=== PATIENT | female | born 1975 | race American Indian/Alaskan Native ===

== ENCOUNTER 2018-04-26 18:32 | Emergency (ER) | payer OTHER ==
--- NOTE | 2018-04-26 18:57 | Emergency Department Report ---
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 will order CT head, and CP protocol ED Disposition for MSE Condition: Stable
[2018-04-26 19:28] LABS: Basophils # (Auto) 0.1 K/mm3 (0.0-0.1); Basophils % (Auto) 0.7 % (0.0-1.8); Eosinophils # (Auto) 0.1 K/mm3 (0.0-0.4); Eosinophils % (Auto) 1.2 % (0.0-4.3); Hematocrit 37.7 % (30.3-42.9); Lymphocytes # (Auto) 1.7 K/mm3 (1.2-5.4); Lymphocytes % (Auto) 22.3 % (13.4-35.0); Mean Corpuscular HGB Conc 35 % (30-34); Mean Corpuscular Volume 89 fl (79-97); Monocytes # (Auto) 0.4 K/mm3 (0.0-0.8); Platelet Count 366 K/mm3 (140-440); Red Blood Count 4.25 M/mm3 (3.65-5.03); Red Cell Distribution Width 13.6 % (13.2-15.2)
[2018-04-26 19:33] LABS: Bacteria,Urine 1+ /HPF (Negative); Bilirubin,Urine NEG (Negative); Blood,Urine NEG (Negative); Color,Urine Yellow (Yellow); Mucus,Urine 1+ /HPF
[2018-04-26 19:39] LABS: INR 0.92 (0.87-1.13)
[2018-04-26 19:40] LABS: Partial Thromboplastin Time 23.2 Sec. (24.2-36.6)
[2018-04-26 19:49] LABS: Alanine Aminotransferase 20 units/L (7-56); BUN/Creatinine Ratio 14; Blood Urea Nitrogen 11 mg/dL (7-17); Calcium 9.1 mg/dL (8.4-10.2); Hemolysis Index 6
--- NOTE | 2018-04-26 20:10 | XRay Report ---
PROCEDURE: XR CHEST ROUTINE 2V TECHNIQUE: Chest 2 views HISTORY: Chest Pain COMPARISONS: FINDINGS: IMPRESSION: . This document is electronically signed by Darnell Raphael MD., April 26 2018 08:07:49 PM ET
--- NOTE | 2018-04-26 20:26 | Cat Scan Report ---
PROCEDURE: CT HEAD/BRAIN WO CON TECHNIQUE: Computerized tomography of the head was performed without contrast material. HISTORY: PEARCE, right eye blurriness COMPARISONS: None . FINDINGS: Brain: Brain density appears normal. No evidence of intracranial hemorrhage. No parenchymal hemorr venessa, mass lesions or mass effect are seen. No abnormal extra-axial fluid collects or masses are see n. Ventricles: Ventricles are normal size and are midline. Bone Windows: No evidence of skull fracture. Paranasal sinuses: Visualized portion of the left maxillary sinus is opacified. I'm uncertain if this represents mucosal thickening and fluid versus a large mucous retention cyst. Visualized paranasal s inuses otherwise are clear. Mastoid air cells: Clear. IMPRESSION: Negative unenhanced CT of the brain. Paranasal sinus disease as described. Please see above comments. This document is electronically signed by Eliud Kennedy MD., April 26 2018 08:24:19 PM ET
[2018-04-26] MEDS ORDERED: NACL 0.9% 1000 ML 1,000 ML IV ONE (20:50)
[2018-04-26] MEDS ORDERED: ZOFRAN IV ONE (20:50)
--- NOTE | 2018-04-26 21:30 | Emergency Department Report ---
HPI - General Chief Complaint: Chest Pain Time Seen by Provider: 04/26/18 18:49 - HPI HPI: 42-year-old after [place] female presents to the emergency department with 3 complaints. First, the patient has had a 5 day history of some right-sided head and facial pain along with some blurriness in the right eye. She has also had a 5 day history of some right mid to lower quadrant abdominal pain. Lastly the patient complains of some right-sided chest pain that started today. She denies any shortness of breath, vomiting, dysuria, vaginal bleeding or discharge but does have some nausea. She has not taken anything for her symptoms prior to presentation. She denies any past medical history. No recent travel or sick contacts at home. She does not have a primary care physician. She denies any tobacco or illicit drug use or abuse. ED Past Medical Hx - Past Medical History Previous Medical History?: No - Surgical History Additional Surgical History: hysterectomy - Social History Smoking Status: Never Smoker Substance Use Type: None - Medications Home Medications: Home Medications Medication Instructions Recorded Confirmed Last Taken Type Ibuprofen 600 mg PO Q8H PRN #20 tablet 04/26/18 Unknown Rx ED Review of Systems ROS: Stated complaint: RT SIDE PAIN/CHEST PAIN Other details as noted in HPI Comment: All other systems reviewed and negative Constitutional: denies: chills, fever Eyes: vision change (right eye blurry vision). denies: eye pain ENT: denies: ear pain, throat pain Respiratory: denies: cough, shortness of breath Cardiovascular: chest pain. denies: edema Gastrointestinal: abdominal pain, nausea. denies: vomiting Genitourinary: denies: dysuria, discharge Musculoskeletal: denies: back pain, arthralgia Skin: denies: rash, lesions Neurological: headache. denies: numbness Physical Exam - Physical Exam Vital Signs: Vital Signs 04/26/18 04/26/18 18:49 20:27 Temperature 97.9 F 98.3 F Pulse Rate 68 61 Respiratory 18 16 Rate Blood Pressure 122/77 Blood Pressure 127/76 [Left] O2 Sat by Pulse 100 97 Oximetry Physical Exam: GENERAL: The patient is well-developed well-nourished. HEENT: Normocephalic. Atraumatic. Patient has moist mucous membranes. EYES: Extraocular motions are intact. Pupils are equal and reactive to light bilaterally. Visual acuity: 20/20 for OS, OD and both eyes. NECK: Supple. Trachea is midline. CHEST/LUNGS: Clear to auscultation. There is no respiratory distress noted. HEART/CARDIOVASCULAR: Regular. There is no tachycardia. There is no obvious murmur. ABDOMEN: Abdomen is soft, nontender. Patient has normal bowel sounds. There is no abdominal distention. SKIN: Skin is warm and dry. NEURO: The patient is awake, alert, and oriented. The patient is cooperative. The patient has no focal neurologic deficits. The patient has normal speech. Cranial nerves II through XII grossly intact. No pronator drift. No dysmetria. No facial asymmetry. MUSCULOSKELETAL: There is no tenderness or deformity. There is no limitation range of motion. There is no evidence of acute injury. ED Course Vital Signs 04/26/18 04/26/18 18:49 20:27 Temperature 97.9 F 98.3 F Pulse Rate 68 61 Respiratory 18 16 Rate Blood Pressure 122/77 Blood Pressure 127/76 [Left] O2 Sat by Pulse 100 97 Oximetry ED Medical Decision Making - Lab Data Result diagrams: 04/26/18 19:13 04/26/18 19:13 - EKG Data -: EKG Interpreted by Me EKG shows normal: sinus rhythm, axis, intervals, QRS complexes, ST-T waves Rate: normal - EKG Data When compared to previous EKG there are: previous EKG unavailable Interpretation: normal EKG - Radiology Data Radiology results: report reviewed, image reviewed interpreted by me: Chest x-ray does not show any pneumothorax, pleural effusion, pneumonia or obvious focal consolidation. PROCEDURE: CT HEAD/BRAIN WO CON TECHNIQUE: Computerized tomography of the head was performed without contrast material. HISTORY: PEARCE, right eye blurriness COMPARISONS: None . FINDINGS: Brain: Brain density appears normal. No evidence of intracranial hemorrhage. No parenchymal hemorrhage, mass lesions or mass effect are seen. No abnormal extra-axial fluid collects or masses are seen. Ventricles: Ventricles are normal size and are midline. Bone Windows: No evidence of skull fracture. Paranasal sinuses: Visualized portion of the left maxillary sinus is opacified. I'm uncertain if this represents mucosal thickening and fluid versus a large mucous retention cyst. Visualized paranasal sinuses otherwise are clear. Mastoid air cells: Clear. IMPRESSION: Negative unenhanced CT of the brain. Paranasal sinus disease as described. Please see above comments. This document is electronically signed by Eliud Henry MD., April 26 2018 08:24:19 PM ET Transcribed By: DANIELLE Dictated By: ELIUD HENRY MD Electronically Authenticated By: ELIUD HENRY MD Signed Date/Time: 04/26/182025 PROCEDURE: CT ABDOMEN PELVIS W CON TECHNIQUE: Computerized axial tomography of the abdomen and pelvis was performed after the IV injection of iodinated nonionic contrast. HISTORY: RLQ abd pain COMPARISONS: None . FINDINGS: Lower Lung chen: Small amount of dependent atelectasis visualized. Lung bases otherwise are clear. Upper Abdomen: Gallbladder is contracted and difficult to evaluate. No gross abnormality is visualized. The liver showed no focal abnormality. The adrenal glands, the pancreas and spleen are unremarkable. Kidneys, Ureters and Urinary bladder: No abnormalities are seen. Retroperitoneum: Atherosclerotic changes are seen in the abdominal aorta. No aneurysm is visualized. Nonspecific subcentimeter lymph nodes are seen in the retroperitoneum. No pat hologically enlarged lymph nodes are identified. Bowel: No abnormalities are identified. There is no evidence of bowel obstruction. No ascites or free intraperitoneal gas is seen. Normal-appearing appendix is visualized in the right lower quadran t. Reproductive organs: Uterus appears to be surgically absent. No abnormal adnexal masses are seen. There is minimal nonspecific fluid visualized in the right side of the cul-de-sac. Other: No acute bone abnormalities are identified. IMPRESSION: Normal-appearing appendix visualized within the right lower quadrant. Minimal nonspecific fluid visualized in the caudal sac to the right of midline. No abnormal adnexal masses are seen. Uterus appears to be surgically absent. This document is electronically signed by Eliud Henry MD., April 26 2018 10:03:11 PM ET Transcribed By: DANIELLE Dictated By: ELIUD HENRY MD Electronically Authenticated By: ELIUD HENRY MD Signed Date/Time: 04/26/182204 - Medical Decision Making This patient presents to the emergency Department with complaints of right-sided head and facial pain, blurry vision, right-sided chest discomfort and some right lower quadrant abdominal pain. Regarding the chest pain, the pain is reproducible to palpation of the chest wall. EKG did not show any signs of ST elevation SC, ischemia or dysrhythmia. Chest x-ray did not show any focal consolidation, pneumothorax, pneumonia or pleural effusions or any acute process. Labs were unremarkable including a negative troponin. Regarding the patient's abdominal pain, the patient did not have any urinary tract infection, she is not and the belly labs were negative including LFTs and bilirubin. A CT scan of the abdomen and pelvis with IV contrast was done that s hows no acute process other than some minimal nonspecific fluid. Regarding the patient's headache and blurred vision, a CT scan of the head was done without any contrast that did not show any bleed, shift, mass, ischemia or any other acute process. Her visual acuity over all is 20/20 for the right eye, left eye and for both eyes. The patient was reevaluated multiple times for multiple hours and is improved. She has no current blurry vision, headache is minimal. Prior to discharge, she was seen ambulatory in the emergency department and appears and feels stable. Follow these reasons patient appears safe for discharge home at this time. She was given referrals for primary care, cardiolo gy and ophthalmology. She will return to the ER with any worsening of her symptoms or any acute distress. Critical Care Time: No Critical care attestation.: If time is entered above; I have spent that time in minutes in the direct care of this critically ill patient, excluding procedure time. ED Disposition Clinical Impression: Right-sided chest wall pain, Blurred vision Headache Qualifiers: Headache type: unspecified Headache chronicity pattern: episodic headache Intractability: not intractable Qualified Code(s): R51 - Headache Abdominal pain Qualifiers: Abdominal location: right lower quadrant Qualified Code(s): R10.31 - Right lower quadrant pain Disposition: TO HOME OR SELFCARE Is pt being admited?: No Condition: Stable Instructions: Chest Pain (ED), Costochondritis (ED), Acute Headache (ED), Abdominal Pain (ED), Blurred Vision (ED) Additional Instructions: Please follow up with a primary care physician in the next few days. I'm giving you a referral for a local cco & president, Dr. Byrd, as well as a local slot tag inserter, Dr. Dobson. Return to the emergency department with any return of her headache, worsening of your symptoms, any neurological deficits such as slurred speech, weakness, numbness, or with any acute distress. Prescriptions: Ibuprofen 600 mg PO Q8H PRN #20 tablet PRN Reason: Pain , Severe (7-10) Referrals: VICTORINA BYRD MD [Staff Physician] - 2-3 Days ROBIN DOBSON MD [Staff Physician] - 2-3 Days SOBEIDA HUNTLEY MD [Staff Physician] - 2-3 Days [facility] [Outside] - 2-3 Days Time of Disposition: 23:02 Heart Score - HEART Score History: Slightly suspicious EKG: Normal Age: < 45 Risk factors: No known risk factors Troponin: < normal limit HEART Score: 0 - Critical Actions Critical Actions: 0-3 pts:0.9-1.7%risk of adverse cardiac event.Candidate for discharge - Assessment Assessment Interval: Baseline - Level of Consciousness 1a. Level of Consciousness: alert/keenly responsive - LOC Questions 1b. LOC Questions: answers both correctly - LOC Command 1c. LOC Commands: performs tasks correctly - Best Gaze 2. Best Gaze: normal - Visual 3. Visual: no visual loss - Facial Palsy 4. Facial Palsy: normal symmetrical movement - Motor Arm 5b. Motor Arm Right: no drift 5a. Motor Arm Left: no drift - Motor Leg 6b. Motor Leg Right: no drift 6a. Motor Leg Left: no drift - Limb Ataxia 7. Limb Ataxia: absent - Sensory 8. Sensory: normal - Best Language 9. Best Language: no aphasia - Dysarthria 10. Dysarthria: normal - Extinction and Inattention 11. Extinction/Inattention: no abnormality - Scoring Total Score: 0 Stroke Severity: No Stroke Symptoms
--- NOTE | 2018-04-26 22:05 | Cat Scan Report ---
PROCEDURE: CT ABDOMEN PELVIS W CON TECHNIQUE: Computerized axial tomography of the abdomen and pelvis was performed after the IV inject ion of iodinated nonionic contrast. HISTORY: RLQ abd pain COMPARISONS: None . FINDINGS: Lower Lung chen: Small amount of dependent atelectasis visualized. Lung bases otherwise are clear. Upper Abdomen: Gallbladder is contracted and difficult to evaluate. No gross abnormality is visualiz ed. The liver showed no focal abnormality. The adrenal glands, the pancreas and spleen are unremarkab le. Kidneys, Ureters and Urinary bladder: No abnormalities are seen. Retroperitoneum: Atherosclerotic changes are seen in the abdominal aorta. No aneurysm is visualized. Nonspecific subcentimeter lymph nodes are seen in the retroperitoneum. No pathologically enlarged ly mph nodes are identified. Bowel: No abnormalities are identified. There is no evidence of bowel obstruction. No ascites or shannon e intraperitoneal gas is seen. Normal-appearing appendix is visualized in the right lower quadrant. Reproductive organs: Uterus appears to be surgically absent. No abnormal adnexal masses are seen. Th ere is minimal nonspecific fluid visualized in the right side of the cul-de-sac. Other: No acute bone abnormalities are identified. IMPRESSION: Normal-appearing appendix visualized within the right lower quadrant. Minimal nonspecific fluid visualized in the caudal sac to the right of midline. No abnormal adnexal m asses are seen. Uterus appears to be surgically absent. This document is electronically signed by Eliud Kennedy MD., April 26 2018 10:03:11 PM ET
[2018-04-26 22:12] LABS: HCG Qualitative,Urine Negative (Negative)
[2018-04-26 23:17] VITALS: BP 122/71
== END 2018-04-26 23:20 | disposition home or self-care (01) ==
LOC: ED 18:32
DX: R51 Headache (principal); R07.89 Other chest pain; H53.8 Other visual disturbances; R10.31 Right lower quadrant pain; Z90.710 Acquired absence of both cervix and uterus
CPT/HCPCS: 36415; 70450; 71046; 74177; 80053; 81001; 81025; 84484; 85025; 85610; 85730; 93005; 93010; 96361; 96374; 99285; J2405; J7030; Q9967

== ENCOUNTER 2018-10-18 14:07 | Emergency (ER) | payer SELFPAY ==
--- NOTE | 2018-10-18 14:32 | Event Note ---
ED Screening Note ED Screening Note: CT ON THURSDAY AT [facility] [place] NORMAL PER PT HOME WITH MOTRIN AND MUSCLE RELAXER PMH NONE PSH HYSTER RX VIT This initial assessment/diagnostic orders/clinical plan/treatment(s) is/are subject to change based on patients health status, clinical progression and re- assessment by fellow clinical providers in the ED. Further treatment and workup at subsequent clinical providers discretion. Patient/guardian urged not to elope from the ED as their condition may be serious if not clinically assessed and managed. Initial orders include: ACC FOR RX
[2018-10-18 14:48] LABS: Hematocrit 37.3 % (30.3-42.9); Hemoglobin 12.9 gm/dl (10.1-14.3); Mean Corpuscular HGB Conc 35 % (30-34); Mean Corpuscular Volume 90 fl (79-97); Platelet Count 362 K/mm3 (140-440); Red Blood Count 4.14 M/mm3 (3.65-5.03); Red Cell Distribution Width 13.1 % (13.2-15.2)
[2018-10-18 15:00] LABS: BUN/Creatinine Ratio 11; Blood Urea Nitrogen 10 mg/dL (7-17); Calcium 9.2 mg/dL (8.4-10.2); Hemolysis Index 6
[2018-10-18] MEDS ORDERED: TORADOL IV ONE (17:16)
[2018-10-18] MEDS ORDERED: REGLAN IV ONE (17:17)
[2018-10-18] MEDS ORDERED: BENADRYL IV ONE (17:17)
[2018-10-18] MEDS ORDERED: BENADRYL ONE (17:21)
[2018-10-18] MEDS ORDERED: TORADOL ONE (17:21)
[2018-10-18] MEDS ORDERED: REGLAN ONE (17:21)
[2018-10-18] MEDS ORDERED: TYLENOL PO ONE (17:57)
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
[2018-10-18 21:16] LABS: Bacteria,Urine 1+ /HPF (Negative); Bilirubin,Urine NEG (Negative); Blood,Urine NEG (Negative); Color,Urine Yellow (Yellow); Mucus,Urine FEW /HPF; Protein,Urine <15 mg/dL mg/dL (Negative); RBC,Urine < 1.0 /HPF (0.0-6.0); Urobilinogen,Urine < 2.0 mg/dL (<2.0)
[2018-10-18 22:22] VITALS: BP 150/76
== END 2018-10-18 22:21 | disposition home or self-care (01) ==
LOC: ED 14:07
DX: R51 Headache (principal); R42 Dizziness and giddiness; Z98.51 Tubal ligation status; Z88.0 Allergy status to penicillin
CPT/HCPCS: 36415; 70450; 80048; 81001; 85027; 93005; 93010; J1200; J1885; J2765

== ENCOUNTER 2018-11-11 13:47 | Emergency (ER) | payer SELFPAY ==
[2018-11-11] MEDS ORDERED: COGENTIN IM ONE (15:15)
[2018-11-11] MEDS ORDERED: NACL 0.9% 1000 ML 1,000 ML IV ONE (15:23)
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
--- NOTE | 2018-11-11 15:37 | XRay Report ---
CHEST 1 VIEW INDICATION: Altered Mental Status. COMPARISON: 04/26/2018 FINDINGS: Support devices: None. Heart: Within normal limits. Lungs/Pleura: No acute air space or interstitial disease. Additional findings: None. IMPRESSION: Normal AP chest. Signer Name: Avery Clifton Jr, MD Signed: 11/11/2018 3:33 PM Workstation Name: [id number]
[2018-11-11 15:57] LABS: Basophils % (Auto) 0.7 % (0.0-1.8); Eosinophils % (Auto) 0.9 % (0.0-4.3); Hematocrit 38.6 % (30.3-42.9); Hemoglobin 12.9 gm/dl (10.1-14.3); Lymphocytes # (Auto) 1.1 K/mm3 (1.2-5.4); Lymphocytes % (Auto) 19.8 % (13.4-35.0); Mean Corpuscular HGB Conc 34 % (30-34); Mean Corpuscular Volume 92 fl (79-97); Monocytes # (Auto) 0.4 K/mm3 (0.0-0.8); Platelet Count 340 K/mm3 (140-440); Red Blood Count 4.23 M/mm3 (3.65-5.03)
[2018-11-11 16:04] LABS: INR 1.06 (0.87-1.13)
[2018-11-11 16:05] LABS: Partial Thromboplastin Time 30.5 Sec. (24.2-36.6)
[2018-11-11 16:21] LABS: Alanine Aminotransferase 35 units/L (7-56); Albumin 4.3 g/dL (3.9-5); BUN/Creatinine Ratio 10; Blood Urea Nitrogen 9 mg/dL (7-17); Calcium 9.6 mg/dL (8.4-10.2); Hemolysis Index 18
[2018-11-11 16:42] LABS: Bilirubin,Urine NEG (Negative); Blood,Urine NEG (Negative); Color,Urine Yellow (Yellow); HCG Qualitative,Urine Negative (Negative); Mucus,Urine FEW /HPF; Protein,Urine <15 mg/dL mg/dL (Negative); Urobilinogen,Urine < 2.0 mg/dL (<2.0)
[2018-11-11 16:48] LABS: Amphetamine Screen,Urine PRESUMPTIVE NEGATIVE; Benzodiazepines Screen,Urine PRESUMPTIVE NEGATIVE; Cannabinoid Screen,Urine PRESUMPTIVE NEGATIVE; Cocaine Screen,Urine PRESUMPTIVE NEGATIVE; Methadone Screen,Urine PRESUMPTIVE NEGATIVE; Opiate Screen,Urine PRESUMPTIVE NEGATIVE
[2018-11-11] MEDS ORDERED: TYLENOL PO ONE (17:42)
--- NOTE | 2018-11-11 18:41 | Cat Scan Report ---
CT head without contrast CLINICAL HISTORY: Altered mental status FINDINGS: The brain demonstrate appropriate attenuation without significant interval change from the previous CT of 10/18/2018. The ventricular system remains appropriate in size and configuration. There is no CT evidence of acute intracranial hemorrhage or significant mass effect at. The visualized par anasal sinuses are clear. All CT scans at this location are performed using the CT dose reduction for ALARA by means of automated exposure control. IMPRESSION: There is no CT evidence of acute intracranial process. Signer Name: Jagdish Mcclellan MD Signed: 11/11/2018 6:36 PM Workstation Name: [id number]
[2018-11-11 19:55] VITALS: BP 149/85
== END 2018-11-11 20:42 | disposition home or self-care (01) ==
LOC: ED 13:47
DX: R41.82 Altered mental status, unspecified (principal); T50.905A Adverse effect of unspecified drugs, medicaments and biological substances, initial encounter; Z88.0 Allergy status to penicillin; Z98.51 Tubal ligation status; Y92.89 Other specified places as the place of occurrence of the external cause
CPT/HCPCS: 36415; 70450; 71045; 80053; 80307; 81001; 81025; 82140; 82550; 84484; 85025; 85610; 85730; 93005; 93010; 96372; 99285; J0515; J7030; 80320; G0480

== ENCOUNTER 2018-11-26 15:10 | Emergency (ER) | payer SELFPAY ==
[2018-11-26 16:12] LABS: Basophils % (Auto) 0.5 % (0.0-1.8); Eosinophils # (Auto) 0.1 K/mm3 (0.0-0.4); Eosinophils % (Auto) 1.2 % (0.0-4.3); Hematocrit 39.7 % (30.3-42.9); Hemoglobin 13.4 gm/dl (10.1-14.3); Lymphocytes # (Auto) 1.3 K/mm3 (1.2-5.4); Lymphocytes % (Auto) 24.9 % (13.4-35.0); Mean Corpuscular HGB Conc 34 % (30-34); Mean Corpuscular Volume 90 fl (79-97); Monocytes # (Auto) 0.3 K/mm3 (0.0-0.8); Monocytes % (Auto) 6.5 % (0.0-7.3); Platelet Count 340 K/mm3 (140-440); Red Blood Count 4.42 M/mm3 (3.65-5.03); Red Cell Distribution Width 12.9 % (13.2-15.2)
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
[2018-11-26 16:36] LABS: Alanine Aminotransferase 40 units/L (7-56); Albumin 4.4 g/dL (3.9-5); BUN/Creatinine Ratio 8; Blood Urea Nitrogen 6 mg/dL (7-17); Calcium 9.4 mg/dL (8.4-10.2); Hemolysis Index 17
[2018-11-26 17:01] LABS: Amphetamine Screen,Urine PRESUMPTIVE NEGATIVE; Benzodiazepines Screen,Urine PRESUMPTIVE NEGATIVE; Cannabinoid Screen,Urine PRESUMPTIVE NEGATIVE; Cocaine Screen,Urine PRESUMPTIVE NEGATIVE; Methadone Screen,Urine PRESUMPTIVE NEGATIVE; Opiate Screen,Urine PRESUMPTIVE NEGATIVE
[2018-11-26 17:06] LABS: Bacteria,Urine 4+ /HPF (Negative); Bilirubin,Urine NEG (Negative); Blood,Urine NEG (Negative); Color,Urine Straw (Yellow); Protein,Urine <15 mg/dL mg/dL (Negative); Urobilinogen,Urine < 2.0 mg/dL (<2.0)
[2018-11-26] MEDS: ACETAMINOPHEN 500 MG TAB PO PRN (20:45)
[2018-11-27] MEDS: ACETAMINOPHEN 500 MG TAB PO PRN (04:25)
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
[2018-11-27] MEDS ORDERED: IBUPROFEN 800 MG TAB PO ONE (12:15)
[2018-11-27] MEDS ORDERED: IBUPROFEN 800 MG TAB ONE (12:19)
[2018-11-28] MEDS: MELATONIN 5 MG TAB PO SCH ×2 (00:03→22:06)
[2018-11-28] MEDS: ACETAMINOPHEN 500 MG TAB PO PRN (05:08)
--- NOTE | 2018-11-28 09:29 | Progress Note ---
Subjective - Reason for Consult Consult date: 11/28/18 Reason for consult: Psychiatry Follow-up - Chief Complaint Chief complaint: "I feel threatened" 43 y.o. AA female who presented to the ER from rehab services to be evaluated. Psychiatry was consulted for psychosis, Today the patient was calm, but still preoccupied during the assessment. She still feel like she's receiving text messages and emails from "someone." She stated that she feel "threatened" from something or someone from "up there" per the patient. The patient whispered throughout the interview. She stated that she didn't feel safe yesterday. She denies SI/HI's and VH's. She stated that the voices she hear "come and go." Mental Status Exam - Vital signs Last Vital Signs Temp 97.9 F 11/28/18 07:00 Pulse 73 11/28/18 07:00 Resp 18 11/28/18 07:00 BP 124/83 11/28/18 07:00 Pulse Ox 98 11/28/18 07:00 - Exam Narrative exam: MSE: Appearance: calm Behavior: regular eye contact Speech: regular rate and low tone Mood: still preoccupied Affect: congruent to mood Thought Process: somewhat disorganized Thought Content: denies SI/HI's and VH's, paranoia, delusional Motor Activity: lying in bed Cognition: A/O x 3 Insight: variable Judgment: variable Assessment and Plan Impression: Unspecified Psychosis. Today the patient was calm, but still preoccupied during the assessment. UDS is negative. DDx: R/O Bipolar DO with psychosis Recommendations/Plan: Continue 1013 and Melatonin 5 mg PO HS for sleep. Start Geodon 20 mg PO BID for psychosis and Cogentin 0.5 mg PO BID for EPS prevention. Attempted to discuss possible metabolic side effects with the patient reference Geodon. Administer Geodon with food. Called the patient's [facility] per the chart, the number does not work. The patient cannot provide a [facility] number to gather collateral information. Dipso: The patient was referred to inpatient psy services. Staffed with Dr Marcel Fierro.
[2018-11-28] MEDS: ZIPRASIDONE 20 MG CAP PO SCH ×2 (11:00→22:06)
[2018-11-28] MEDS: BENZTROPINE 0.5 MG TAB PO SCH ×2 (11:00→22:06)
[2018-11-29 10:07] VITALS: BP 117/79
[2018-11-29 10:55] LABS: Chol/HDL Ratio 3.74 %
--- NOTE | 2018-11-29 11:18 | Progress Note ---
Subjective - Reason for Consult Consult date: 11/29/18 Reason for consult: Psychiatry Follow-up - Chief Complaint Chief complaint: "I know I'm leaving" 43 y.o. AA female who presented to the ER from rehab services to be evaluated. Psychiatry was consulted for psychosis, Today the patient was calm during the assessment. She still appeared to be paranoid. She was aware of her transfer to a mental health facility. She stated, "I may need the help." She denies SI/HI's and VH's. She would not confirm or deny AH's. No indications of side effects from her medication. Mental Status Exam - Vital signs Last Vital Signs Temp 98.1 F 11/29/18 08:30 Pulse 84 11/29/18 08:30 Resp 16 11/29/18 08:30 BP 117/79 11/29/18 08:30 Pulse Ox 99 11/29/18 08:30 - Exam Narrative exam: MSE: Appearance: calm Behavior: regular eye contact Speech: regular rate and low tone Mood: "okay" Affect: congruent to mood Thought Process: circumstantial Thought Content: denies SI/HI's and VH's, paranoia Motor Activity: lying in bed Cognition: A/O x 3 Insight: variable Judgment: variable Assessment and Plan Impression: Unspecified Psychosis. Today the patient was calm during the assessment. UDS is negative. DDx: R/O Bipolar DO with psychosis Recommendations/Plan: Continue 1013, Melatonin 5 mg PO HS for sleep, Geodon 20 mg PO BID for psychosis, and Cogentin 0.5 mg PO BID for EPS prevention. Discussed possible metabolic side effects with the patient reference Lyly, she verbalized understanding. Administer Geodon with food. Dipso: The patient was accepted at [facility] for inpatient psy services. Will staff with Dr Marcel Fierro.
== END 2018-11-29 09:45 ==
LOC: ED 15:10
DX: F31.9 Bipolar disorder, unspecified (principal)
CPT/HCPCS: 36415; 80053; 80061; 80307; 80320; 81001; 83036; 84703; 85025; 99285; G0480